=== PATIENT | female | born 1965 ===

== ENCOUNTER 2017-12-07 02:06 | Emergency (ER) | payer MEDICAID, SELFPAY ==
[2017-12-07] MEDS: Sodium Chloride 0.9% 1,000 ML IV STA ×2 (02:36→05:05)
--- NOTE | 2017-12-07 02:42 | ED PDOC ---
HPI: Abdomen Time Seen by Provider: 12/07/17 02:19 Chief Complaint (Nursing): Abdominal Pain Chief Complaint (Provider): abdominal pain History Per: Patient, Family (son; patient comfortable translating through son) History/Exam Limitations: no limitations Onset/Duration Of Symptoms: Hrs (1) Current Symptoms Are (Timing): Still Present Location Of Pain/Discomfort: RLQ, LLQ, Suprapubic Associated Symptoms: Fever, Chills, Nausea, Back Pain, Urinary Symptoms Additional Complaint(s): 52 y/o female presents for evaluation of lower abdominal pain x 1 hour. Patient states pain woke her from her sleep, also with nausea and chills, and back pain. Son states he checked patient's temp and it was 101F. Patient reports dysuria x 3 weeks, states she did not have time to see a doctor for it. Denies headache, vomiting, cough, congestion, chest pain, shortness of breath , palpitations, hematuria, vaginal bleeding/discharge, recent travel, sick contacts. Past Medical History Reviewed: Historical Data, Nursing Documentation, Vital Signs Vital Signs: Last Vital Signs Temp 100.8 F H 12/07/17 05:06 Pulse 100 H 12/07/17 05:06 Resp 16 12/07/17 05:06 BP 122/79 12/07/17 02:11 Pulse Ox 97 12/07/17 05:06 - Medical History PMH: No Chronic Diseases - Surgical History Surgical History: - Family History Family History: States: No Known Family Hx - Living Arrangements Living Arrangements: With Family - Home Medications Home Medications: Ambulatory Orders Medication Instructions Recorded Ciprofloxacin HCl [Cipro] 500 mg PO BID #14 tab 12/07/17 Ibuprofen [Motrin Tab] 1 tab PO Q6 PRN #20 tab 12/07/17 - Allergies Allergies/Adverse Reactions: Allergies Allergy/AdvReac Type Severity Reaction Status Date / Time No Known Allergies Allergy Verified 12/07/17 02:27 Review of Systems ROS Statement: Except As Marked, All Systems Reviewed And Found Negative Constitutional: Positive for: Fever, Chills Gastrointestinal: Positive for: Nausea, Abdominal Pain Genitourinary Female: Positive for: Dysuria Physical Exam - Reviewed Nursing Documentation Reviewed: Yes Vital Signs Reviewed: Yes - Physical Exam Appears: Positive for: Well, Non-toxic, Uncomfortable Head Exam: Positive for: ATRAUMATIC, NORMAL INSPECTION, NORMOCEPHALIC Skin: Positive for: Normal Color Eye Exam: Positive for: Normal appearance ENT: Positive for: Normal ENT Inspection Cardiovascular/Chest: Positive for: Regular Rate, Rhythm Respiratory: Positive for: Normal Breath Sounds Gastrointestinal/Abdominal: Positive for: Bowel Sounds, Soft, Tenderness ( diffuse lower abdominal discomfort to palpation) Back: Positive for: L CVA Tenderness, R CVA Tenderness Extremity: Positive for: Normal ROM Neurologic/Psych: Positive for: Alert, Oriented (x3) - Laboratory Results Result Diagrams: 12/07/17 02:30 12/07/17 02:30 - ECG ECG: Positive for: Viewed By Me (reviewed by ED attending) ECG Rhythm: Positive for: Sinus Rhythm, Nonspecific Changes - Progress ED Course And Treament: EXAM: CT Abdomen and Pelvis With Intravenous Contrast CLINICAL HISTORY: 52 years, female; Pain; Abdominal pain; Prior surgery; Surgery date: 6+ months; Surgery type: Csection x4; Additional info: Fever, abd pain, back pain TECHNIQUE: Axial computed tomography images of the abdomen and pelvis with intravenous contrast. All CT scans at this facility use at least one of these dose optimization techniques: automated exposure control; mA and/or kV adjustment per patient size (includes targeted exams where dose is matched to clinical indication); or iterative reconstruction. Coronal and sagittal reformatted images were created and reviewed. CONTRAST: 90 mL of [id number] administered intravenously. COMPARISON: No relevant prior studies available. FINDINGS: Lung bases: Minimal dependent densities in the lung bases. ABDOMEN: Liver: Unremarkable. No obvious mass. Gallbladder and bile ducts: Unremarkable. No calcified stones. No significant biliary ductal dilatation. Pancreas: Unremarkable. No ductal dilation. No obvious mass. Spleen: Unremarkable. No splenomegaly. Adrenals: Unremarkable. No adrenal nodules or masses identified. Kidneys and ureters: No hydronephrosis. There is mild left-sided hydroureter and periureteral stranding, with mild urothelial enhancement at the level of the left ureter. This suggests ureteritis. There is minimal perinephric stranding at the lower pole of the left kidney. No hydronephrosis. No renal or ureteral stones. Stomach and bowel: No evidence of bowel obstruction. No significant bowel wall thickening appreciated. PELVIS: Appendix: The appendix is unremarkable. Bladder: Unremarkable. No obvious mass. Reproductive: Unremarkable as visualized. ABDOMEN and PELVIS: Intraperitoneal space: Unremarkable. No free air. No significant fluid collection. Bones/joints: No acute fracture. No dislocation. Soft tissues: Small fat-containing umbilical hernia. Vasculature: Unremarkable. No abdominal aortic aneurysm. Lymph nodes: No significant lymph node enlargement. IMPRESSION: Mild left-sided hydroureter and periureteral stranding, with mild urothelial enhancement at the level of the left ureter. This suggests ureteritis. The differential includes a recently passed stone. There is also minimal perinephric stranding at the lower pole of the left kidney, and mild superimposed pyelonephritis is not excluded. IV rocephin dose ordered 5:30 Patient states she is feeling better. Tolerating PO Vitals improved Patient educated on findings, discharged with rx Cipro, ibuprofen Advised follow up PMD within 2 days Return precautions given Disposition - Clinical Impression Clinical Impression: Pyelonephritis - Patient ED Disposition Is Patient to be Admitted: No Counseled Patient/Family Regarding: Studies Performed, Diagnosis, Need For Followup, Rx Given - Disposition Referrals: Isabelle Callaway MD [Primary Care Provider] - Disposition: Routine/Home Disposition Time: 05:38 Condition: IMPROVED Prescriptions: Ciprofloxacin HCl [Cipro] 500 mg PO BID #14 tab Ibuprofen [Motrin Tab] 1 tab PO Q6 PRN #20 tab PRN Reason: Fever >100.4 F Instructions: Kidney Infection Print Language: DIVEHI
[2017-12-07 02:49] LABS: BASO % 0.2 % (0.0-2.0); EOS % 0.4 % (0.0-4.0); HEMOGLOBIN 13.3 g/dL (12.0-16.0); LYMPH # 1.5 K/uL (1.0-4.3); LYMPH % 16.3 % (20.0-40.0); MEAN CELL VOLUME 86.7 fl (81.0-99.0); MEAN CORPUSCULAR HEMOGLOBIN 29.8 pg (27.0-31.0); MEAN CORPUSCULAR HGB CONC 34.4 g/dL (33.0-37.0); MONO # 0.3 K/uL (0.0-0.8); MONO % 2.8 % (0.0-10.0); NEUT # 7.4 K/uL (1.8-7.0); NEUT % 80.3 % (50.0-75.0); RBC 4.46 Mil/uL (3.80-5.20); RED CELL DISTRIBUTION WIDTH 13.4 % (11.5-14.5); WHITE BLOOD COUNT 9.2 K/uL (4.8-10.8)
[2017-12-07 02:52] LABS: VENOUS BLOOD GAS BASE EXCESS 1.9 mmol/L (0.0-2.0); VENOUS BLOOD GAS PCO2 41 mmHg (40-60); VENOUS BLOOD GAS PO2 21 mm/Hg (30-55); VENOUS BLOOD PH 7.42 (7.32-7.43)
[2017-12-07 03:14] LABS: ALB/GLOB RATIO 1.3 (1.0-2.1); ALBUMIN 4.4 g/dL (3.5-5.0); ALT/SGPT 48 U/L (9-52); AST/SGOT 61 U/L (14-36); BLOOD UREA NITROGEN 16 mg/dl (7-17); CALCIUM 9.7 mg/dL (8.4-10.2); GFR AFRICAN-AMERICAN > 60; GFR NON-AFRICAN AMERICAN > 60
[2017-12-07] MEDS ORDERED: Iohexol 300 100 ML IJ ONE (03:20)
[2017-12-07] MEDS ORDERED: Sodium Chloride 0.9% 100 ML ONE (03:20)
[2017-12-07 04:10] LABS: SQUAMOUS EPITHIAL 1 /hpf (0-5); URINE BACTERIA RARE (<OCC); URINE BILIRUBIN NEGATIVE (NEGATIVE); URINE BLOOD MODERATE (NEGATIVE); URINE CLARITY CLOUDY (Clear); URINE COLOR YELLOW (YELLOW); URINE GLUCOSE (UA) NEG (Normal); URINE LEUKOCYTE ESTERASE LARGE Leu/uL (Negative); URINE PROTEIN 30 mg/dL (NEGATIVE); URINE UROBILINOGEN 0.2-1.0 mg/dL (0.2-1.0)
[2017-12-07] MEDS ORDERED: cefTRIAXone (Rocephin) 1 gm Inj ONE (04:59)
[2017-12-07 05:06] VITALS: RESP 16; O2SAT 97
[2017-12-07 05:39] VITALS: BP 108/68; PULSE 102; TEMP 99.5
--- NOTE | 2017-12-07 08:57 | CT ---
Date of service: 12/07/2017 PROCEDURE: CT Abdomen and Pelvis with contrast HISTORY: fever, abd pain, back pain COMPARISON: None. TECHNIQUE: Contrast dose: 90 mL Omnipaque 300 Radiation dose: Total exam DLP = 392 mGy-cm. This CT exam was performed using one or more of the following dose reduction techniques: Automated exposure control, adjustment of the mA and/or kV according to patient size, and/or use of iterative reconstruction technique. FINDINGS: LOWER THORAX: Unremarkable. LIVER: Unremarkable. No gross lesion or ductal dilatation. GALLBLADDER AND BILE DUCTS: Unremarkable. PANCREAS: Unremarkable. No gross lesion or ductal dilatation. SPLEEN: Unremarkable. ADRENALS: Unremarkable. No mass. KIDNEYS AND URETERS: Minimal asymmetrical prominence of the left ureter with minimal left urothelial enhancement -compatible with a left ureteritis. No distal obstructing calculus identified. The left ureter is difficult to completely identified as a separate distinct entity from the left ovary which has normal physiologic appearing follicles associated with it. A left hemipelvic phleboliths is posterior to the expected position the left ureter. No hydronephrosis. No solid mass. VASCULATURE: Tiny left hemipelvic phlebolith. No aortic aneurysm. BOWEL: Few left and right colonic diverticuli-no diverticulitis appreciated. Moderate stool retention. No obstruction. No gross mural thickening. APPENDIX: Normal appendix. PERITONEUM: Unremarkable. No free fluid. No free air. LYMPH NODES: Unremarkable. No enlarged lymph nodes. BLADDER: Unremarkable. REPRODUCTIVE: Uterus tip towards the left -left ovary is believe identified with tiny follicular cystic changes within it. The and distal left ureter blends into this left ovary region BONES: No acute fracture. OTHER FINDINGS: A small umbilical fat only containing hernia noted. No bowel containing hernia appreciated. A coalescent non dilated small bowel loops in the anterior pelvis just above the bladder is also incidentally noted. IMPRESSION: Minimal asymmetrical prominence of the left ureter. Findings referenced above compatible with a nonspecific left ureteritis. No source of obstruction seen. Minimal left extra renal pelviectasis -nonspecific. No more peripheral caliectasis appreciated Other findings -as above. Concordant results (preliminary interpretation) provided by [employer].
--- NOTE | 2017-12-07 09:29 | CARD ---
APPROVED REPORT Date of service: 12/07/2017 EKG Measurement Heart [id number] <Conclusion> sinus tachycardia Nonspecific T wave abnormality Abnormal ECG
--- NOTE | 2017-12-07 10:08 | RAD ---
Date of service: 12/07/2017 HISTORY: fever COMPARISON: No prior. FINDINGS: LUNGS: No consolidation. PLEURA: No significant pleural effusion identified, no pneumothorax apparent. CARDIOVASCULAR: Probable top-normal heart size. Central pulmonary vasculature borderline prominent. OSSEOUS STRUCTURES: Thoracic spondylosis. Bilateral shoulder arthrosis. VISUALIZED UPPER ABDOMEN: Normal. OTHER FINDINGS: Left rotator cuff calcific tendinopathy and/or calcific bursitis. IMPRESSION: No consolidation to suggest an infiltrate. Other findings -as above.
== END 2017-12-07 06:05 | disposition home or self-care (01) ==
LOC: H.ER 02:06
DX: N12 Tubulo-interstitial nephritis, not specified as acute or chronic (principal); N28.89 Other specified disorders of kidney and ureter
CPT/HCPCS: 71045; 74177; 80053; 81003; 81025; 82803; 85025; 87040; 87086; 87181; 93005; 96361; 96365; 96375; 96376; 99285; J0696; J2405; J7030; Q9967